=== PATIENT | male | born 1990 | race Hispanic/Latino ===

== ENCOUNTER 2019-09-21 10:23 | Observation (INO) | payer OTHER ==
[~2019-09-21] VITALS: Ht 172.7 cm; Wt 95.3 kg
[2019-09-21] MEDS ORDERED: SODIUM CHLORIDE 0.9% 1000ML 1,000 ML IV STA (10:47)
[2019-09-21] MEDS ORDERED: ONDANSETRON HCL INJ 2MG/ML 2ML 2 MG/ML VIAL ONE ×2 (10:58→11:25)
[2019-09-21] MEDS ORDERED: SODIUM CHLORIDE 0.9% 1000ML 1,000 ML ONE (10:58)
[2019-09-21] MEDS ORDERED: FAMOTIDINE 20 MG/2 ML VIAL IV ONE (10:59)
[2019-09-21] MEDS ORDERED: ONDANSETRON HCL INJ 2MG/ML 2ML 2 MG/ML VIAL IV ONE (11:00)
[2019-09-21] MEDS ORDERED: FAMOTIDINE 20 MG/2 ML VIAL IV NR (11:00)
[2019-09-21] MEDS ORDERED: IOPAMIDOL 370 MG/ML 200 ML INFUS..BTL INJ ONE (11:04)
[2019-09-21] MEDS ORDERED: LIDOCAINE HCL 2% LOCAL INJ 5 ML SDV VIAL INJ ONE (11:25)
[2019-09-21] MEDS ORDERED: SEVOFLURANE INHAL SOLN 250 ML PEN BTL ONE (11:25)
[2019-09-21] MEDS ORDERED: DEXAMETHASONE SOD PHOS INJ 4 MG/ML VIAL ONE (11:25)
[2019-09-21] MEDS ORDERED: NEOSTIGMINE 5 MG/5ML SYR ONE (11:25)
[2019-09-21] MEDS ORDERED: PROPOFOL IV EMULSION 10 MG/ML 20 ML VIAL ONE (11:25)
[2019-09-21] MEDS ORDERED: GLYCOPYRROLATE INJ 1MG/ 5 ML SYR ONE (11:25)
[2019-09-21] MEDS ORDERED: KETOROLAC TROMETHAMINE 30 MG/ML VIAL ONE (11:25)
[2019-09-21] MEDS ORDERED: ROCURONIUM BROMIDE 10 MG/ML 5ML VIAL ONE (11:25)
--- NOTE | 2019-09-21 12:36 | Diagnostic Imaging Report ---
EXAM: CT Abdomen and Pelvis WITHOUT contrast INDICATION: Right-sided abdominal pain. COMPARISON: None. TECHNIQUE: Abdomen and pelvis were scanned utilizing a multidetector helical scanner from the lung base to the pubic symphysis without administration of IV contrast. Absence of intravenous contrast decreases sensitivity for detection of focal lesions and vascular pathology. Coronal and sagittal reformations were obtained. Routine protocol was performed. IV CONTRAST: None. ORAL CONTRAST: Water RADIATION DOSE: Total DLP: 804.35 mGy*cm Estimated effective dose: (DLP x 0.015 x size factor) mSv COMPLICATIONS: None FINDINGS: LINES and TUBES: None. LOWER THORAX: Unremarkable HEPATOBILIARY: No focal hepatic lesions. No biliary ductal dilation. GALLBLADDER: No radio-opaque stones or sludge. No wall thickening. SPLEEN: No splenomegaly. PANCREAS: No focal masses or ductal dilatation. ADRENALS: No adrenal nodules KIDNEYS/URETERS: No hydronephrosis. 3.2 cm cyst in the upper pole of the right kidney on image 34. Bilateral small nonobstructing renal calculi, the largest in the upper pole of the left kidney measuring 0.8 mm. No stones. GI TRACT: No abnormal distention, wall thickening, or evidence of bowel obstruction. Appendix is is diffusely thickened up to 1.2 cm in diameter, associated with periappendiceal fat stranding consistent with acute appendicitis. No abscess formation. PELVIC ORGANS/BLADDER: Unremarkable. LYMPH NODES: No lymphadenopathy. VESSELS: Unremarkable. PERITONEUM / RETROPERITONEUM: No free air or fluid. BONES: Unremarkable. SOFT TISSUES: Unremarkable. IMPRESSION: 1. Acute appendicitis. No abscess formation. 2. Bilateral nonobstructing renal calculi. 3. Hepatic steatosis. Signed by: Dr. Carlos Manuel Davies M.D. on 09/21/2019 12:32 PM
[2019-09-21] MEDS ORDERED: D5.45%NS/KCL 20MEQ 1,000 ML IV SCH (12:42)
[2019-09-21] MEDS ORDERED: ONDANSETRON HCL INJ 2MG/ML 2ML 2 MG/ML VIAL IV PRN ×2 (12:45→19:45)
[2019-09-21] MEDS ORDERED: DIPHENHYDRAMINE HCL INJ 50 MG/ML VIAL IV PRN (12:45)
--- OUTSIDE RECORDS SUMMARY | 2019-09-21 13:09 | XMS REPORT ---
Author Author [facility] Address Unknown Phone Unavailable Care Team Providers Care Fish Fryer Name Role Phone Sierra VICTORIA Unavailable Unavailable Problems This patient has no known problems. Allergies, Adverse Reactions, Alerts This patient has no known allergies or adverse reactions. Medications This patient has no known medications. Results Test Description Test Time Test Comments Text Results Atomic Results Result Comments CT ABD/PEL WITH CONTRAST-HOPD 2019-09-21 12:03:00 [place] [address] Patient Name: LINDA VALENZUELA MR #: [id number] : 1990 Age/Sex: 28/M Req #: [id number] Adm Physician: Ordered by: ERNESTINA VICTORIA MD Report #: [id number] Location: [facility] Room/Bed: Procedure: [id number] HOPD/CT ABD/PEL WITH CONTRAST-HOPD Exam Date: 09/21/19 Exam Time: 1144 REPORT STATUS: Signed EXAM: CT Abdomen and Pelvis WITHOUT contrast INDICATION: Right-sided abdominal pain. COMPARISON: None. TECHNIQUE: Abdomen and pelvis were scanned utilizing a multidetector helical scanner from the lung base to the pubic symphysis without administration of IV contrast. Absence of intravenous contrast decreases sensitivity for detection of focal lesions and vascular pathology. Coronal and sagittal reformations were obtained. Routine protocol was performed. IV CONTRAST: None. ORAL CONTRAST: Water RADIATION DOSE: Total DLP: 804.35 mGy*cm Estimated effective dose: (DLP x 0.015 x size factor) mSv COMPLICATIONS: None FINDINGS: LINES and TUBES: None. LOWER THORAX: Unremarkable HEPATOBILIARY: No focal hepatic lesions. No biliary ductal dilation. GALLBLADDER: No radio-opaque stones or sludge. No wall thickening. SPLEEN: No splenomegaly. PANCREAS: No focal masses or ductal dilatation. ADRENALS: No adrenal nodules KIDNEYS/URETERS: No hydronephrosis. 3.2 cm cyst in the upper pole of the right kidney on image 34. Bilateral small nonobstructing renal calculi, the largest in the upper pole of the left kidney measuring 0.8 mm. No stones. GI TRACT: No abnormal distention, wall thickening, or evidence of bowel obstruction. Appendix is is diffusely thickened up to 1.2 cm in diameter, associated with periappendiceal fat stranding consistent with acute appendicitis. No abscess formation. PELVIC ORGANS/BLADDER: Unremarkable. LYMPH NODES: No lymphadenopathy. VESSELS: Unremarkable. PERITONEUM / RETROPERITONEUM: No free air or fluid. BONES: Unremarkable. SOFT TISSUES: Unremarkable. IMPRESSION: 1. Acute appendicitis. No abscess formation. 2. Bilateral nonobstructing renal calculi. 3. Hepatic steatosis. Signed by: Dr. Carlos Manuel Christianson M.D. on 09/21/2019 12:32 PM Dictated By: GABINO CHRISTIANSON MD, MD [id number] Transcribed By: BUD on 09/21/19 1232 COPY TO: ERNESTINA VICTORIA MD
--- NOTE | 2019-09-21 13:19 | NUR ---
Called [facility] for transport to room 109
[2019-09-21] MEDS ORDERED: MORPHINE SULFATE INJ 4 MG/ML INJ 1ML IV PRN (13:30)
--- NOTE | 2019-09-21 13:45 | NUR ---
Report given to JEAN-PIERRE Hills
[2019-09-21] MEDS ORDERED: PIPER-TAZ 3.375 GM 50 ML ONE (13:46)
[2019-09-21] MEDS: PIPER-TAZ 3.375 GM 50 ML IV SCH ×2 (13:50→16:25)
[2019-09-21] MEDS ORDERED: PIPER-TAZ 3.375 GM / NS 50ML IV SCH (14:00)
--- NOTE | 2019-09-21 14:25 | NUR ---
The pt. was received [facility] awake alert and oriented. He arrived to room 109 with 18g iv cath tot he right ac space ad admission process was completed. The pt. and spouse reported he has only had one dose of antibiotics since arrival to the [facility]. Dr. Lion was notified of the pt's arrival and order received to give abx and get a consent for appy. The pt. was asked to complete a surgical shower and is gowned and ready for surgery.
[2019-09-21] MEDS ORDERED: MIDAZOLAM HCL 2 MG/2 ML VIAL ONE (14:35)
[2019-09-21] MEDS ORDERED: FENTANYL CITRATE/PF 100MCG/2 ML INJ ONE (14:35)
[2019-09-21] MEDS: FAMOTIDINE 20 MG/2 ML VIAL IV SCH (15:19)
[2019-09-21 15:36] LABS: BASOPHILS # (AUTO) 0.1 (0.0-0.1); BASOPHILS % 1.3 % (0.0-1.0); EOSINOPHILS # (AUTO) 0.2 (0.0-0.4); EOSINOPHILS % 3.2 % (0.0-6.0); HEMATOCRIT 43.5 % (38.2-49.6); HEMOGLOBIN 14.9 g/dL (14.0-18.0); LYMPHOCYTES # (AUTO) 1.9 (1.0-3.2); LYMPHOCYTES % 31.1 % (18.0-39.1); MEAN CORPUSCULAR HEMOGLOBIN 30.8 pg (28-32); MEAN CORPUSCULAR HGB CONC 34.3 g/dL (31-35); MEAN CORPUSCULAR VOLUME 90.1 fL (81-99); MONOCYTES # (AUTO) 0.6 (0.2-0.8); MONOCYTES % 9.3 % (4.4-11.3); NEUTROPHILS # (AUTO) 3.4 (2.1-6.9); NEUTROPHILS % 54.6 % (38.7-80.0); PLATELET COUNT 249 x10e3/uL (140-360); RED BLOOD COUNT 4.83 x10e6/uL (4.3-5.7); RED CELL DISTRIBUTION WIDTH 11.9 % (11.7-14.4)
[2019-09-21 15:52] LABS: ANION GAP 10.6 mmol/L (8-16); BLOOD UREA NITROGEN 10 mg/dL (7-26); BUN/CREATININE RATIO 11 (6-25); CALCIUM 9.3 mg/dL (8.4-10.2); CARBON DIOXIDE 27 mmol/L (22-29); CHLORIDE 101 mmol/L (98-107); CREATININE, SERUM 0.88 mg/dL (0.72-1.25); EST GLOMERULAR FILTRATION RATE > 60 ML/MIN (60-); GLUCOSE 79 mg/dL (74-118); POTASSIUM 3.6 mmol/L (3.5-5.1); SODIUM 135 mmol/L (136-145)
[2019-09-21] MEDS ORDERED: BUPIVACAINE HCL 0.5% INJ 30 ML VIAL INJ ONE (18:23)
--- NOTE | 2019-09-21 18:43 | NUR ---
THE PT. IS OUT OF THE ROOM TO SURGERY AT THIS TIME.
[2019-09-21] MEDS ORDERED: HYDROMORPHONE 1MG/1ML INJ IV PRN (19:45)
[2019-09-21] MEDS ORDERED: HYDROCODONE/APAP 5MG-325MG TAB PO PRN (19:45)
[2019-09-21 20:30] VITALS: BP 142/87
[2019-09-22] MEDS: SODIUM CHLORIDE 0.9% 1000ML 1,000 ML IV SCH ×2 (00:19→05:35)
[2019-09-22 00:36] VITALS: BP 126/76
--- NOTE | 2019-09-22 01:27 | Consultation ---
DATE OF CONSULTATION: 09/21/2019 REFERRING PHYSICIAN: Dr. Mario Mcgowan. HISTORY OF PRESENT ILLNESS: The patient is a 28-year-old male presents with complaints of abdominal pain started yesterday. The pain is localized in the right lower quadrant. He had associated nausea. The patient came to the emergency room for evaluation. CT scan of the abdomen revealed findings suggestive of acute appendicitis. He has not had any fever. He has not had similar pains in the past. PAST MEDICAL HISTORY: Unremarkable. He has no chronic medical problems. PAST SURGICAL HISTORY: No previous surgery. CURRENT MEDICATIONS: No current medications. ALLERGIES: NO KNOWN ALLERGIES. FAMILY HISTORY: Noncontributory. SOCIAL HISTORY: The patient does not smoke cigarettes. Does not drink alcohol. REVIEW OF SYSTEMS: As stated above, otherwise was negative. PHYSICAL EXAMINATION: GENERAL: The patient is awake and alert in no distress. VITAL SIGNS: Normal. HEENT: Unremarkable. Sclera is nonicteric. NECK: Supple with no masses. LUNGS: Equal breath sounds. Clear bilaterally. CARDIAC: Regular rate and rhythm with no murmur. ABDOMEN: Tender in the right lower quadrant. Signs of peritonitis localized right lower quadrant. There is no mass. No organomegaly. EXTREMITIES: No edema. Pulses were palpable. NEUROLOGIC: Intact. ASSESSMENT AND PLAN: A 28-year-old male with acute appendicitis. He will benefit from appendectomy. Plan to schedule for today. Procedure was explained to the patient including risks, benefits, and alternatives. He understands. He has had the opportunity to ask questions. He is aware of the possible need for open surgery. Thank you for asking me to see Mr. Snider. MD JAZZY Berumen/HELENAL /[id number]
--- NOTE | 2019-09-22 02:03 | Operative Report ---
DATE OF PROCEDURE: 09/21/2019 SURGEON: Oleksandr Lion MD PREOPERATIVE DIAGNOSIS: Acute appendicitis. POSTOPERATIVE DIAGNOSIS: Acute appendicitis. PROCEDURES: Diagnostic laparoscopy, laparoscopic appendectomy. TOMBSTONE POLISHER: None. ANESTHESIA: General endotracheal. INDICATIONS AND FINDINGS: The patient is a 28-year-old male, who presents with a 1-day history of abdominal pain localized to right lower quadrant. At surgery, the patient was found with acutely inflamed appendix. TECHNIQUE: After adequate general endotracheal anesthesia, the patient in supine position, the abdomen was prepped and draped in sterile fashion with ChloraPrep solution. Skin in the umbilicus was infiltrated with 0.5% Marcaine. Incision was made in the umbilicus. Abdominal wall was elevated and Veress needle was introduced. Pneumoperitoneum was then created. A 5 mm trocar and cannula was then passed through the umbilical wound. Laparoscopic camera was introduced. Initial laparoscopy revealed acutely inflamed appendix. A 12 mm trocar and cannula was placed suprapubically and a 5 mm trocar and cannula placed in right upper quadrant. These were placed under direct vision. Cecum was elevated. Window was created between the base of the appendix and mesoappendix. The base of the appendix was divided close to the cecum with Endo-LYNN stapler. The mesoappendix was also divided with the Endo-LYNN stapler freeing the appendix completely. Appendix was placed into an Endopouch and brought out through the suprapubic cannula. Care was taken to not touch the abdominal wall. There was some bleeding from the mesoappendix, which was controlled with hemoclips and hemostasis achieved. The peritoneal cavity was irrigated with saline. All fluid aspirated and inspected for hemostasis, which was seen to be adequate. It was irrigated further with saline. All fluid aspirated and inspected once again for hemostasis, which was seen to be adequate. Instruments and cannulas were then removed. Pneumoperitoneum was evacuated. Wounds were then closed. Fascia in the umbilical and suprapubic wound closed with 0 Vicryl. Skin to all wounds closed with maritza. Sterile dressings applied to each wound. The patient tolerated the procedure well. Estimated blood loss was 20 mL. There were no complications. All counts were correct and the patient was taken to the recovery room in satisfactory condition. MD JAZZY Berumen/HELENAL /[id number]
[2019-09-22] MEDS: PIPER-TAZ 3.375 GM 50 ML IV SCH (04:51)
[2019-09-22 05:50] VITALS: BP 128/73
[2019-09-22 07:38] VITALS: BP 136/86
[2019-09-22 09:08] VITALS: BP 136/86
[2019-09-22] MEDS: FAMOTIDINE 20 MG/2 ML VIAL IV SCH (09:08)
[2019-09-22] MEDS ORDERED: CELEBREX100 MG PO (11:10)
[2019-09-22] MEDS ORDERED: ZOFRAN4 MG PO (11:11)
[2019-09-22] MEDS ORDERED: ULTRACET TABLE1 EACH PO (11:11)
[2019-09-22] MEDS ORDERED: AUGMENTIN 875-1 EACH PO (11:11)
--- NOTE | 2019-09-22 11:32 | NUR ---
DISCHARGE INSTRUCTIONS AND PRESCRIPTIONS GIVEN DC ORDER CLEARED BY SURGEON AND ATTENDING IV DC PRESSURE DRESSING APPLIED AND TAPED IS READY FOR DC
--- NOTE | 2019-09-22 11:50 | NUR ---
PT OFF UNIT TO HOME
--- NOTE | 2019-09-23 01:11 | Discharge Summary ---
SAIL REPAIRER: Dr. Oleksandr Lion. FINAL DIAGNOSES: 1. Acute appendicitis. 2. Status post laparoscopic appendectomy. SUMMARY: A 28-year-old male with acute appendicitis. No abscess. The patient is status post laparoscopic appendectomy. The patient is stable. He will go home today. Discharge followup with Dr. Oleksandr Lion this coming week. Augmentin 875 mg b.i.d. with food for 5 days. Celebrex 100 mg twice a day p.r.n. for pain. Zofran ODT 4 mg sublingual q.4 p.r.n. for nausea. Ultracet p.r.n. for pain. The patient is stable and discharged home today. Follow up as instructed. MD DALLAS Yang/HELENAL /[id number]
== END 2019-09-22 11:42 | disposition home or self-care (01) ==
LOC: FSED 10:23 → ERHOLD 13:03 → INTOOBSV 13:03 → MED/SURG 14:41
PROVIDERS: ADMIT Internal Medicine; ATTEND Internal Medicine
DX: K35.30 Acute appendicitis with localized peritonitis, without perforation or gangrene (principal)
CPT/HCPCS: 36415; 44970; 74177; 80048; 80053; 81003; 85025; 88304; 96374; 96375; 99284; G0378 ×2; J1100; J1170; J1885; J2001; J2250; J2405; J2543 ×2; J2704; J3010; J3490; J7030; Q9967